=== PATIENT | male | born 1990 ===

== ENCOUNTER 2018-04-23 02:42 | Emergency (ER) | payer OTHER ==
[2018-04-23] MEDS ORDERED: Sodium Chloride 0.9% 1,000 ML IV STA (03:18)
[2018-04-23 03:39] LABS: BASO % 0.4 % (0.0-2.0); EOS # 0.1 K/uL (0.0-0.7); EOS % 2.2 % (0.0-4.0); HEMOGLOBIN 14.7 g/dL (12.0-18.0); LYMPH # 2.7 K/uL (1.0-4.3); LYMPH % 41.3 % (20.0-40.0); MEAN CORPUSCULAR HEMOGLOBIN 29.1 pg (27.0-31.0); MEAN CORPUSCULAR HGB CONC 33.1 g/dL (33.0-37.0); MEAN PLATELET VOLUME 8.1 fl (7.2-11.7); MONO # 0.6 K/uL (0.0-0.8); MONO % 9.1 % (0.0-10.0); NEUT # 3.1 K/uL (1.8-7.0); NRBC % 0.1 % (0.0-0.0); RBC 5.04 Mil/uL (4.40-5.90); WHITE BLOOD COUNT 6.6 K/uL (4.8-10.8)
[2018-04-23 03:45] LABS: ALB/GLOB RATIO 1.3 (1.0-2.1); ALBUMIN 4.3 g/dL (3.5-5.0); ALT/SGPT 44 U/L (21-72); AST/SGOT 31 U/L (17-59); BLOOD UREA NITROGEN 15 mg/dl (9-20); GFR NON-AFRICAN AMERICAN > 60
--- NOTE | 2018-04-23 03:46 | ED PDOC ---
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 Patient describes pain as constant and sharp, rating it 10/10. He denies any fever, chills, abdominal pain, or testicular pain. PCP: none provided Past Medical History Reviewed: Historical Data, Nursing Documentation, Vital Signs Vital Signs: Last Vital Signs Temp 98 F 04/23/18 03:06 Pulse 80 04/23/18 03:06 Resp 18 04/23/18 03:06 BP 164/90 H 04/23/18 03:06 Pulse Ox 100 04/23/18 03:06 - Medical History PMH: No Chronic Diseases - Surgical History Surgical History: No Surg Hx - Family History Family History: States: Unknown Family Hx - Social History Current smoker - smoking cessation education provided: No Alcohol: None Drugs: Denies - Home Medications Home Medications: Ambulatory Orders Medication Instructions Recorded Tamsulosin [Flomax] 0.4 mg PO DAILY #10 cap 04/23/18 oxyCODONE/Acetaminophen [Percocet 1 ea PO Q6 PRN #8 tab 04/23/18 5/325 mg Tab] - Allergies Allergies/Adverse Reactions: Allergies Allergy/AdvReac Type Severity Reaction Status Date / Time No Known Allergies Allergy Verified 04/23/18 03:06 Review of Systems ROS Statement: Except As Marked, All Systems Reviewed And Found Negative Constitutional: Negative for: Fever, Chills Gastrointestinal: Positive for: Nausea. Negative for: Abdominal Pain Genitourinary Male: Negative for: Other (testicular pain) Musculoskeletal: Positive for: Back Pain (right flank) Physical Exam - Reviewed Nursing Documentation Reviewed: Yes Vital Signs Reviewed: Yes - Physical Exam Appears: Positive for: Uncomfortable Head Exam: Positive for: ATRAUMATIC, NORMAL INSPECTION, NORMOCEPHALIC Skin: Positive for: Normal Color Eye Exam: Positive for: Normal appearance Neck: Positive for: Normal, Painless ROM Cardiovascular/Chest: Positive for: Regular Rate, Rhythm Respiratory: Positive for: Normal Breath Sounds. Negative for: Respiratory Distress Gastrointestinal/Abdominal: Positive for: Normal Exam, Soft. Negative for: Tenderness Back: Positive for: Normal Inspection. Negative for: L CVA Tenderness, R CVA Tenderness, Vertebral Tenderness, Decreased ROM Extremity: Positive for: Normal ROM (upper/lower) Neurologic/Psych: Positive for: Alert, Oriented. Negative for: Motor/Sensory Deficits - Laboratory Results Result Diagrams: 04/23/18 03:26 04/23/18 03:26 - ECG O2 Sat by Pulse Oximetry: 100 (RA) Pulse Ox Interpretation: Normal Medical Decision Making Medical Decision Making: Initial Impression: 27 year old male with acute renal colic. Initial Plan: * CT ABD/pelvis * Labs * IV fluids * Toradol 30mg IV * Zofran 4mg IV Time: 0410 --CT ABD/pelvis FINDINGS: LUNG BASES: The lung bases appear clear. No pleural effusions are seen. LIVER: Unremarkable. GALLBLADDER AND BILE DUCTS: The gallbladder appears within normal limits. No radioopaque gallstones are seen. No biliary ductal dilatation is evident. PANCREAS: Unremarkable. SPLEEN: Unremarkable. ADRENAL GLANDS: Unremarkable. KIDNEYS, URETERS, AND BLADDER: 8 x 5 mm calculus is noted in the proximal right ureter producing moderate hydroureteronephrosis. There is perinephric stranding. Single punctate non-obstructing calculus is present in the lower pole of the right kidney. Unremarkable left kidney. STOMACH AND BOWEL: Unremarkable appearance of the stomach and bowel. No evidence of bowel obstruction. No evidence suggesting enteritis or colitis. APPENDIX: No evidence of acute appendicitis on CT examination. PERITONEUM: No free fluid. No free air. LYMPH NODES: No lymphadenopathy is evident. REPRODUCTIVE: Unremarkable as visualized. VASCULATURE: No evidence of abdominal aortic aneurysm. BONES: No aggressive appearing osseous lesion. No acute osseous pathology evident. IMPRESSION: 1. 8 x 5 mm calculus is noted in the proximal right ureter producing moderate hydroureteronephrosis. 2. Punctate non-obstructing calculus is present in the lower pole of the right kidney. Time: 0532 --Upon provider reevaluation, patient is medically stable, reports improvement in symptoms, and requires no further treatment in the ED at this time. Patient will be discharged home with referral given for urologist. Counseling was provided and all questions were answered regarding diagnosis. There is agreement to discharge plan. Return if symptoms persist or worsen. Clinical Impression: Uteral calculus Scribe Attestation: Documented by Wen Cummins, acting as a scribe for Edy Lang MD. Provider Scribe Attestation: All medical record entries made by the Scribe were at my direction and personally dictated by me. I have reviewed the chart and agree that the record accurately reflects my personal performance of the history, physical exam, medical decision making, and the department course for this patient. I have also personally directed, reviewed, and agree with the discharge instructions and disposition. Disposition - Clinical Impression Clinical Impression: Ureteral calculus - Patient ED Disposition Is Patient to be Admitted: No Counseled Patient/Family Regarding: Studies Performed, Diagnosis, Need For Followup, Rx Given - Disposition Referrals: Jaskaran Tejada MD [Staff Provider] - Disposition: Routine/Home Disposition Time: 05:32 Condition: STABLE Prescriptions: oxyCODONE/Acetaminophen [Percocet 5/325 mg Tab] 1 ea PO Q6 PRN #8 tab PRN Reason: flank pain Tamsulosin [Flomax] 0.4 mg PO DAILY #10 cap Instructions: Renal Colic Forms: [employer] (Arabic)
[2018-04-23 04:52] LABS: URINE BACTERIA RARE (<OCC); URINE BILIRUBIN NEGATIVE (NEGATIVE); URINE BLOOD LARGE (NEGATIVE); URINE CLARITY SLIGHTY-CLOUDY (Clear); URINE COLOR YELLOW (YELLOW); URINE GLUCOSE (UA) NEG (NEGATIVE); URINE LEUKOCYTE ESTERASE NEG Leu/uL (Negative); URINE PROTEIN 30 mg/dL (NEGATIVE); URINE UROBILINOGEN 0.2-1.0 mg/dL (0.2-1.0)
[2018-04-23 05:56] VITALS: BP 122/78; PULSE 82; RESP 16; TEMP 98.2; O2SAT 98
--- NOTE | 2018-04-23 14:15 | CT ---
Date of service: 04/23/2018 PROCEDURE: CT Abdomen and Pelvis. HISTORY: Renal colic COMPARISON: No prior TECHNIQUE: Contiguous axial images of the abdomen and pelvis performed without oral or intravenous contrast material. Additional 2D sagittal and coronal reformats generated. Radiation dose: Total exam DLP = 596.71 mGy-cm. This CT exam was performed using one or more of the following dose reduction techniques: Automated exposure control, adjustment of the mA and/or kV according to patient size, and/or use of iterative reconstruction technique. FINDINGS: LOWER THORAX: Unremarkable. LIVER: Liver demonstrates normal size. No evidence of hepatic mass collection or calcification.. GALLBLADDER AND BILE DUCTS: Unremarkable. PANCREAS: Unremarkable. No mass. No ductal dilatation. SPLEEN: Unremarkable. No splenomegaly. ADRENALS: Unremarkable. KIDNEYS AND URETERS: There is a obstructing approximately 8 mm elliptical shaped calculus within the proximal/mid right ureter with moderate right-sided hydronephrosis. There is a punctate calcification also seen in the lower pole collecting system right kidney. No evidence of left-sided nephrolithiasis or hydronephrosis. BLADDER: Urinary bladder incompletely distended which may in part account for thick-walled appearance. Possibility of a cystitis not excluded. REPRODUCTIVE: Unremarkable. APPENDIX: Unremarkable. BOWEL: Unremarkable. No obstruction. No gross mural thickening. PERITONEUM: Unremarkable. No fluid collection. No free air. LYMPH NODES: Unremarkable. No enlarged lymph nodes. VASCULATURE: Unremarkable. No aortic aneurysm. No aortic atherosclerotic calcification or mural plaque present. . BONES: Minor multilevel degenerative spondylosis of the lower thoracic and to a lesser degree lumbar spine OTHER FINDINGS: None. IMPRESSION: Obstructing 8 mm calculus proximal/mid right ureter with moderate right-sided hydronephrosis. There is also a punctate nonobstructing calcification lower pole collecting system right kidney.
== END 2018-04-23 05:56 | disposition home or self-care (01) ==
LOC: H.ER 02:42
DX: N13.2 Hydronephrosis with renal and ureteral calculous obstruction (principal)
CPT/HCPCS: 74176; 80053; 81003; 85025; 96360; 99282; J1885; J2405; J7030

== ENCOUNTER 2018-07-28 21:46 | Emergency (ER) | payer OTHER ==
[2018-07-28 22:16] VITALS: RESP 18; O2SAT 100
[2018-07-28 22:20] VITALS: BMI 32.0
[2018-07-28] MEDS ORDERED: Sodium Chloride 0.9% 1,000 ML IV STA (22:48)
--- NOTE | 2018-07-28 22:51 | ED PDOC ---
HPI: Abdomen Time Seen by Provider: 07/28/18 22:33 Chief Complaint (Nursing): Male Genitourinary Chief Complaint (Provider): abdominal pain History Per: Patient, Balance Truer (Sixto Hernandez ED tech/certified interpter) History/Exam Limitations: no limitations Onset/Duration Of Symptoms: Hrs Current Symptoms Are (Timing): Still Present Location Of Pain/Discomfort: Suprapubic Additional Complaint(s): 27 y/o male presents for evaluation of suprapubic abdominal pain x 1 day. Associated difficulty urinating. Denies fever, vomiting, chest pain, shortness of breath, palpitations, back pain, penile pain/discharge. Past Medical History Reviewed: Historical Data, Nursing Documentation, Vital Signs Vital Signs: Last Vital Signs Temp 97.8 F 07/28/18 22:15 Pulse 74 07/28/18 22:15 Resp 18 07/28/18 22:15 BP 144/82 07/28/18 22:15 Pulse Ox 100 07/28/18 22:15 - Medical History PMH: Kidney Stones - Surgical History Surgical History: No Surg Hx - Family History Family History: States: Unknown Family Hx - Home Medications Home Medications: Ambulatory Orders Medication Instructions Recorded Tamsulosin [Flomax] 0.4 mg PO DAILY #10 cap 04/23/18 oxyCODONE/Acetaminophen [Percocet 1 ea PO Q6 PRN #8 tab 04/23/18 5/325 mg Tab] Naproxen [Naprosyn] 500 mg PO Q12 PRN #20 tablet 07/29/18 Tamsulosin [Flomax] 0.4 mg PO DAILY #10 cap 07/29/18 traMADol [Ultram] 50 mg PO Q8 PRN #10 tab 07/29/18 - Allergies Allergies/Adverse Reactions: Allergies Allergy/AdvReac Type Severity Reaction Status Date / Time No Known Allergies Allergy Verified 04/23/18 03:06 Review of Systems ROS Statement: Except As Marked, All Systems Reviewed And Found Negative Gastrointestinal: Positive for: Abdominal Pain Physical Exam - Reviewed Nursing Documentation Reviewed: Yes Vital Signs Reviewed: Yes - Physical Exam Appears: Positive for: Well, Non-toxic, Uncomfortable Head Exam: Positive for: ATRAUMATIC, NORMAL INSPECTION, NORMOCEPHALIC Skin: Positive for: Normal Color Eye Exam: Positive for: Normal appearance ENT: Positive for: Normal ENT Inspection Cardiovascular/Chest: Positive for: Regular Rate, Rhythm Respiratory: Positive for: Normal Breath Sounds Gastrointestinal/Abdominal: Positive for: Bowel Sounds, Soft, Tenderness (suprapubic) Back: Positive for: Normal Inspection Extremity: Positive for: Normal ROM Neurological/Psych: Positive for: Awake, Alert, Oriented (x3) - Laboratory Results Result Diagrams: 07/28/18 23:49 07/28/18 23:49 - ECG O2 Sat by Pulse Oximetry: 100 - Progress ED Course And Treament: -udip -cbc -cmp -urinalysis -urine c&s -IV NS bolus -IV toradol -CT renal protocol CT of the abdomen and pelvis without contrast Clinical statement: hematuria. Technique: Multiple axial CT images were obtained from the base of the lungs to the floor of the pelvis utilizing 5 mm axial slices without administration of contrast. Coronal and sagittal reconstructions were also obtained. Comparison: 04/23/2018. Findings: Chest: The visualized lung bases are clear. Abdomen: The kidneys are normal in size bilaterally. There is severe right-sided hydronephrosis caused by a 1 cm obstructing stone at the right ureterovesical junction. Several smaller nonobstructing stones are seen in the right renal collecting system. The left renal collecting system is unremarkable. The liver, spleen, pancreas, gallbladder and adrenal glands are unremarkable. The aorta demonstrates normal caliber and contour. There is no abdominal lymphadenopathy or ascites. Pelvis: The bowel is unremarkable, with no obstructive or inflammatory changes. The appendix is normal. The urinary bladder is within normal limits. There is no pelvic lymphadenopathy or ascites. The other pelvic structures appear unremarkable. Bones: There are no suspicious osseous abnormalities seen. Impression: Severe right-sided hydronephrosis caused by a 1 mm obstructing stone at the right ureterovesical junction Patient smiling on re-eval, states he is feeling much better Patient educated on findings, discharged with rx Flomax (dose given in ED), Naproxen, Tramadol Advised follow up urology Strainer given with instructions on use Drink plenty of fluids Return precautions given Disposition - Clinical Impression Clinical Impression: Ureteral calculus - Patient ED Disposition Is Patient to be Admitted: No Counseled Patient/Family Regarding: Studies Performed, Diagnosis, Need For Followup, Rx Given - Disposition Referrals: Jaskaran Tejada MD [Staff Provider] - [facility] [Outside] Disposition: Routine/Home Disposition Time: 02:15 Condition: IMPROVED Prescriptions: Naproxen [Naprosyn] 500 mg PO Q12 PRN #20 tablet PRN Reason: Pain, Moderate (4-7) Tamsulosin [Flomax] 0.4 mg PO DAILY #10 cap traMADol [Ultram] 50 mg PO Q8 PRN #10 tab PRN Reason: Pain, Severe (8-10) Instructions: How to Strain Your Urine, Kidney Stones in Adults Print Language: CROATIAN
[2018-07-28 23:58] LABS: BASO % 0.4 % (0.0-2.0); EOS % 0.4 % (0.0-4.0); LYMPH # 1.1 K/uL (1.0-4.3); LYMPH % 9.9 % (20.0-40.0); MEAN CELL VOLUME 86.8 fl (80.0-94.0); MEAN CORPUSCULAR HEMOGLOBIN 29.3 pg (27.0-31.0); MEAN CORPUSCULAR HGB CONC 33.7 g/dL (33.0-37.0); MEAN PLATELET VOLUME 8.2 fl (7.2-11.7); MONO # 0.4 K/uL (0.0-0.8); MONO % 3.6 % (0.0-10.0); NEUT # 9.2 K/uL (1.8-7.0); NEUT % 85.7 % (50.0-75.0); NRBC % 0.1 % (0.0-0.0); PLATELET COUNT 282 K/uL (130-400); RBC 5.14 Mil/uL (4.40-5.90); WHITE BLOOD COUNT 10.8 K/uL (4.8-10.8)
[2018-07-29 00:06] LABS: ALB/GLOB RATIO 1.3 (1.0-2.1); ALBUMIN 4.7 g/dL (3.5-5.0); ALT/SGPT 44 U/L (21-72); AST/SGOT 38 U/L (17-59); BLOOD UREA NITROGEN 21 mg/dl (9-20); CALCIUM 9.7 mg/dL (8.4-10.2); GFR NON-AFRICAN AMERICAN > 60; URINE BILIRUBIN NEGATIVE (NEGATIVE); URINE BLOOD LARGE (NEGATIVE); URINE CLARITY SLIGHTY-CLOUDY (Clear); URINE COLOR YELLOW (YELLOW); URINE GLUCOSE (UA) NEG (NEGATIVE); URINE LEUKOCYTE ESTERASE NEG Leu/uL (Negative); URINE PROTEIN 30 mg/dL (NEGATIVE); URINE UROBILINOGEN 0.2-1.0 mg/dL (0.2-1.0)
[2018-07-29] MEDS ORDERED: Sodium Chloride 0.9% 1,000 ML IV STA (01:24)
[2018-07-29 02:58] LABS: BANDS 3 % (0-2); EOSINOPHIL 1 % (0-7); LYMPHOCYTE 8 % (20-50); MONOCYTE 4 % (0-10); NEUTROPHIL 84 % (42-75); PLATELET ESTIMATE NORMAL (NORMAL); TOTAL CELLS COUNTED 100
[2018-07-29 03:06] VITALS: BP 128/74; PULSE 72; TEMP 98.2
--- NOTE | 2018-07-29 13:01 | CT ---
Date of service: 07/29/2018 PROCEDURE: CT abdomen pelvis. HISTORY: Abdominal pain, hematuria COMPARISON: Comparison made with prior study 04/23/2018. TECHNIQUE: Contiguous axial images of the abdomen and pelvis. Oral contrast was administered. No IV contrast given. Coronal and Sagittal reformats generated. Radiation dose: Total exam DLP = 622.13 mGy-cm. This CT exam was performed using one or more of the following dose reduction techniques: Automated exposure control, adjustment of the mA and/or kV according to patient size, and/or use of iterative reconstruction technique. FINDINGS: LOWER THORAX: Heart size within range of normal. No significant pericardial effusion. Small hiatal hernia. Lung bases clear. LIVER: Unremarkable. No gross lesion or ductal dilatation. GALLBLADDER AND BILE DUCTS: Unremarkable. PANCREAS: Unremarkable. No mass. No ductal dilatation. SPLEEN: Unremarkable. No splenomegaly. ADRENALS: Unremarkable. KIDNEYS AND URETERS: There is an approximately 9.1 mm obstructing right UVJ calculus.Few punctate nonobstructing calcifications seen in the lower pole collecting system right kidney and upper and lower pole collecting system left kidney. BLADDER: Urinary bladder is incompletely distended with slight thick-walled appearance in part due to incomplete distention. Muscular hypertrophy may contribute. Cystitis must be considered therefore urinalysis correlation recommended. REPRODUCTIVE: Unremarkable. APPENDIX: Normal appendix BOWEL: Unremarkable. No obstruction. No gross mural thickening. PERITONEUM: Unremarkable. No fluid collection. No free air. LYMPH NODES: There are there are multiple small to medium-sized mesenteric lymph nodes the largest of which measures approximately 12.3 mm best seen on coronal sequence 601 image number 57. Additionally, there are a few small nonspecific retroperitoneal lymph nodes. VASCULATURE: Unremarkable. No aortic aneurysm. No aortic atherosclerotic calcification or mural plaque present. BONES: Minimal multilevel degenerative spondylosis lower thoracic and lumbar spine OTHER FINDINGS: None. IMPRESSION: Approximately 9.1 mm obstructing calculus right UVJ with moderate to significant right-sided hydronephrosis. Few punctate nonobstructing calcifications seen in the lower pole collecting system right kidney and upper and lower pole collecting system left kidney
== END 2018-07-29 02:30 | disposition home or self-care (01) ==
LOC: H.ER 21:46
DX: N13.2 Hydronephrosis with renal and ureteral calculous obstruction (principal)
CPT/HCPCS: 74176; 80053; 81003; 85025; 87086; 99284; J1885; J7030

== ENCOUNTER 2018-08-14 09:23 | Emergency (ER) | payer OTHER ==
[2018-08-14 09:35] VITALS: BP 127/67; PULSE 65; RESP 17; TEMP 98.5; O2SAT 98
[2018-08-14 09:36] VITALS: BMI 30.7
--- NOTE | 2018-08-14 10:42 | ED PDOC ---
HPI: CCC, URI, Sore Throat Time Seen by Provider: 08/14/18 09:42 Chief Complaint (Nursing): ENT Problem Chief Complaint (Provider): ENT Problem History Per: Patient History/Exam Limitations: no limitations Onset/Duration Of Symptoms: Other (6 months) Additional Complaint(s): 27 y/o male presents to the ED complaining of swelling on lower left lip thats been ongoing for 6 months. Patient states he bites his lip since he got the swelling and does not go away. He reports he occasionally bite his lip when he eats due to the swelling. He states he hasnt seen his PMD and has not taken any medication for it. Patient denies any pain. PMD: NONE PROVIDED Past Medical History Reviewed: Historical Data, Nursing Documentation, Vital Signs Vital Signs: Last Vital Signs Temp 98.5 F 08/14/18 09:34 Pulse 65 08/14/18 09:34 Resp 17 08/14/18 09:34 BP 127/67 08/14/18 09:34 Pulse Ox 98 08/14/18 09:34 - Medical History PMH: Kidney Stones, Chronic Kidney Disease - Surgical History Surgical History: No Surg Hx - Family History Family History: States: Unknown Family Hx - Home Medications Home Medications: Ambulatory Orders Medication Instructions Recorded Tamsulosin [Flomax] 0.4 mg PO DAILY #10 cap 04/23/18 oxyCODONE/Acetaminophen [Percocet 1 ea PO Q6 PRN #8 tab 04/23/18 5/325 mg Tab] Naproxen [Naprosyn] 500 mg PO Q12 PRN #20 tablet 07/29/18 Tamsulosin [Flomax] 0.4 mg PO DAILY #10 cap 07/29/18 traMADol [Ultram] 50 mg PO Q8 PRN #10 tab 07/29/18 Amoxicillin/Clavulanate [Augmentin 1 tab PO BID #14 tab 08/14/18 875 MG-125 MG] Chlorhexidine 0.12% [Peridex] 10 ml PO BID #1 bottle 08/14/18 - Allergies Allergies/Adverse Reactions: Allergies Allergy/AdvReac Type Severity Reaction Status Date / Time No Known Allergies Allergy Verified 04/23/18 03:06 Review of Systems ROS Statement: Except As Marked, All Systems Reviewed And Found Negative ENT: Positive for: Other (lower left lip swelling. no pain. ) Physical Exam - Reviewed Nursing Documentation Reviewed: Yes Vital Signs Reviewed: Yes - Physical Exam Appears: Positive for: Well, Non-toxic, No Acute Distress Head Exam: Positive for: ATRAUMATIC, NORMOCEPHALIC Skin: Positive for: Normal Color, Warm, DRY Eye Exam: Positive for: EOMI, Normal appearance, PERRL ENT: Positive for: Normal ENT Inspection, Other (2cm swelling on lower left lip internally mercurial surface. nontender.) Neck: Positive for: Normal, Painless ROM, Supple Neurological/Psych: Positive for: Awake, Alert, Normal Tone, Oriented (x3). Negative for: Motor/Sensory Deficits - ECG O2 Sat by Pulse Oximetry: 98 Medical Decision Making Medical Decision Making: Time:1030 Initial Impression: Lesion on lower left lip Initial Plan: Patient is instructed to see PMD and referral to see max facial and ENT specialist. Evaluate. Scribe Attestation: Documented by Hilaria Negro, acting as a scribe for Adams Garza. Provider Scribe Attestation: All medical record entries made by the Scribe were at my direction and personally dictated by me. I have reviewed the chart and agree that the record accurately reflects my personal performance of the history, physical exam, medical decision making, and the department course for this patient. I have also personally directed, reviewed, and agree with the discharge instructions and disposition. Disposition - Clinical Impression Clinical Impression: Lip swelling - Patient ED Disposition Is Patient to be Admitted: No Doctor Will See Patient In The: Office Counseled Patient/Family Regarding: Studies Performed, Diagnosis, Need For Followup - Disposition Referrals: [facility] [Outside] [facility] [Outside] Sam Stewart MD [Staff Provider] - Disposition: Routine/Home Disposition Time: 10:45 Condition: GOOD Additional Instructions: Follow up with maxillofacial and ENT service for your lip problem. Prescriptions: Amoxicillin/Clavulanate [Augmentin 875 MG-125 MG] 1 tab PO BID #14 tab Chlorhexidine 0.12% [Peridex] 10 ml PO BID #1 bottle Instructions: Leukoplakia Forms: [employer] (Cypriot)
== END 2018-08-14 10:59 | disposition home or self-care (01) ==
LOC: H.ER 09:23
DX: R22.0 Localized swelling, mass and lump, head (principal); N18.9 Chronic kidney disease, unspecified; Z87.442 Personal history of urinary calculi